=== PATIENT | female | born 1995 | race Caucasian/White ===

== ENCOUNTER 2021-08-27 16:21 | Emergency (ER) | payer OTHER, SELFPAY ==
--- NOTE | 2021-08-27 16:29 | ED.URI ---
HPI - URI/Sore Throat General Chief Complaint: Upper Respiratory Infection Stated Complaint: LOSS OF APPETITE/VOMITING/COUGH/FEVER/ Time Seen by Provider: 08/27/21 16:35 Source: patient and RN notes reviewed Mode of arrival: ambulatory Limitations: no limitations History of Present Illness HPI Narrative: 25-year-old female presents with concern 2-day history of fever, cough, loss of appetite, vomiting. Reports she is not vaccinated for Covid. She reports taking Sudafed. She denies any known Covid exposure. She denies shortness of breath. MD elicited complaint: cough and sore throat Related Data Home Medications Medication Instructions Recorded Confirmed drospirenone 3 mg-ethinyl 1 tablet PO DAILY 07/23/21 07/23/21 estradiol 0.02 mg tablet epinephrine 0.3 mg/0.3 mL 0.3 mg IM ONCE PRN 07/23/21 07/23/21 injection, auto-injector melatonin 10 mg capsule 10 mg PO QHS 07/23/21 07/23/21 Allergies Allergy/AdvReac Type Severity Reaction Status Date / Time montelukast [From Singulair] AdvReac Severe hallucinations, Verified 07/23/21 14:41 vivid dreams zileuton AdvReac Severe hallucinations, Verified 07/23/21 14:41 vivid dreams Review of Systems Review of Systems: CONSTITUTIONAL: Reports malaise, fever. Denies chills, sweats EYES: Denies visual changes, redness, or discharge. ENT: Denies rhinorrhea, congestion, sinus pain, otalgia and sore throat. CARDIOVASCULAR: Denies chest pain, palpitations, or edema. RESPIRATORY: Reports cough. Denies dyspnea. GASTROINTESTINAL: Denies abdominal pain,diarrhea. Reports loss of appetite, vomiting SKIN: Denies rash or itching. MUSCULOSKELETAL: Denies myalgia. NEUROLOGIC: Denies headache. All systems reviewed & are unremarkable except as noted in HPI and below PMFSH Past Medical History Medical History Congenital left [id number]-[id number]-igtxe reflux Surgical History Surgical History [place] teeth extracted 2015 Family History Family History Grandparent Pancreatic cancer Diabetes mellitus Hypertension Heart problem Cerebrovascular accident Thyroid disorder Grandparent Lung cancer Hypertension Cerebrovascular accident Social History Social History Smoking status: Never smoker Alcohol intake: never Substance use: never Agree to blood products: Yes Comments At time of signature, agree with nursing past medical, surgical, social and family history. There is no relevant family history pertinent to the presenting complaint Exam Narrative: GENERAL: Well-appearing, well-nourished, and in no acute distress. HEAD: Normocephalic EYES: PERRLA, conjunctivae clear ENT: Nares clear. Mucous membranes moist. TM pearly kirk with dull light reflex bilaterally; no tragal tenderness. Oropharynx not erythematous without lesions. Tonsils not enlarged and without exudate, no drooling, no hoarseness, no trismus, uvula midline. NECK: Supple. No lymphadenopathy CHEST: Clear to auscultation, breath sounds equal. No wheezing, rhonchi, rales, or stridor. No respiratory distress, speaks in full sentences. HEART: Regular rate and rhythm. No murmur heard. SKIN: Warm, dry, no rash. NEURO: Alert and oriented x3. PSYCH: Normal mood and affect Course Course Emergency Course: Patient is aware of diagnosis, understands and agrees to treatment plan. Anticipatory guidance given. Patient agrees to follow-up as directed and is aware of reasons to seek care at the emergency department. Portions of this record may have been created with voice recognition software Vital Signs Vital signs: Reviewed. MDM - URI/Sore Throat MDM Narrative Medical decision making narrative: Differential diagnosis considered: [place] virus, strep pharyng
[2021-08-27 16:30] VITALS: BP 103/76; PULSE 106; RESP 12; TEMP 37.1; O2SAT 100
== END 2021-08-27 16:58 | disposition home or self-care (01) ==
PROVIDERS: Emergency Provider Nurse Practitioner
DX: U07.1 COVID-19 (principal)
CPT/HCPCS: 87426; 99213; C9803; G0463